=== PATIENT | male | born 1945 | race Caucasian/White ===

== ENCOUNTER → 2025-01-15 | Day surgery (SDC) | payer MEDICARE ==
[2025-01-08 14:26] LABS: BASOPHILS # (AUTO) 0.1 (0.0-0.1); BASOPHILS % 0.4 % (0.0-1.0); EOSINOPHILS # (AUTO) 0.4 (0.0-0.4); EOSINOPHILS % 3.5 % (0.0-6.0); HEMOGLOBIN 12.1 g/dL (14.0-18.0); LYMPHOCYTES # (AUTO) 2.4 (1.0-3.2); LYMPHOCYTES % 21.4 % (18.0-39.1); MEAN CORPUSCULAR HEMOGLOBIN 31.4 pg (28-32); MEAN CORPUSCULAR HGB CONC 32.7 g/dL (31-35); MEAN CORPUSCULAR VOLUME 96.1 fL (81-99); MONOCYTES % 8.4 % (4.4-11.3); NEUTROPHILS # (AUTO) 7.5 (2.1-6.9); NEUTROPHILS % 65.9 % (38.7-80.0); PLATELET COUNT 214 x10e3/uL (140-360); RED BLOOD COUNT 3.85 x10e6/uL (4.3-5.7); RED CELL DISTRIBUTION WIDTH 13.3 % (11.7-14.4)
[~2025-01-15] MED LIST: ACETAMINOPHEN-1 EAC4 PO; AMLODIPINE BESYL5 MG PO; CALCIUM PO; CLOBETASOL PROP15 G1 TOP; COQ-10100 MG PO; COREG12.5 MG PO; CRESTOR40 MG PO; DESONIDE15 GM TOP; EYE LUBRICANT OPTH OINT 3.5GM TUBE OP ONE; FENTANYL CITRATE/PF 100MCG/2 ML INJ ONE; FLONASE ALLERG9.9 ML INH; FLUOCINONIDE15 GM TOP; GABAPENTIN100 MG PO; HYDROCORTISONE114 GM TOP; IRON PO; LACTATED RINGER'S 1,000 ML ONE; METRONIDAZOLE TOP; MIDAZOLAM HCL 2 MG/2 ML VIAL ONE; MULTI-VITAMIN1 EACH PO; OIL EACH EAR; ONDANSETRON HCL INJ 2MG/ML 2ML 2 MG/ML VIAL ONE; PRESERVISION A1 EAC4 PO; PROPOFOL IV EMULSION 10 MG/ML 20 ML VIAL ONE; SULFACETAMIDE S TOP; TRIAMCINOLONE A15 G1 TOP; VITAMIN B121000 MCG PO; ZESTRIL10 MG PO
[2025-01-15 08:56] VITALS: TEMP 97.7
[2025-01-15 09:25] VITALS: BP 140/72; PULSE 62; RESP 10; O2SAT 96
== END | disposition home or self-care (01) ==
LOC: OR 06:03
PROVIDERS: ATTEND Plastic Surgery
DX: C44.319 Basal cell carcinoma of skin of other parts of face (principal); I10 Essential (primary) hypertension; E78.5 Hyperlipidemia, unspecified; Z88.6 Allergy status to analgesic agent; Z01.810 Encounter for preprocedural cardiovascular examination; Z01.812 Encounter for preprocedural laboratory examination; Z79.899 Other long term (current) drug therapy
CPT/HCPCS: 11646; 12052; 36415; 85025; 88305; 93005; J0690; J2250; J2405; J2704; J3010; J7121; 88304

== ENCOUNTER → 2025-09-27 | Outpatient (REF) | payer MEDICARE ==
[~2025-09-27] MED LIST changes: -EYE LUBRICANT OPTH OINT 3.5GM TUBE OP ONE; -FENTANYL CITRATE/PF 100MCG/2 ML INJ ONE; -LACTATED RINGER'S 1,000 ML ONE; -MIDAZOLAM HCL 2 MG/2 ML VIAL ONE; -ONDANSETRON HCL INJ 2MG/ML 2ML 2 MG/ML VIAL ONE; -PROPOFOL IV EMULSION 10 MG/ML 20 ML VIAL ONE
== END ==
LOC: CT 07:58
PROVIDERS: ATTEND Family Medicine
DX: F17.200 Nicotine dependence, unspecified, uncomplicated (principal)
CPT/HCPCS: 71250